=== PATIENT | male | born 1995 | race Caucasian/White ===

== ENCOUNTER 2025-01-07 07:59 | Emergency (ER) | payer OTHER ==
[~2025-01-07] VITALS: Ht 185.4 cm; Wt 99.5 kg
[2025-01-07 08:01] VITALS: BP 134/66; TEMP 99.4; O2SAT 97
[2025-01-07] MEDS ORDERED: AMOX500C PO (09:20)
== END 2025-01-07 09:37 | disposition home or self-care (01) ==
LOC: M ED 07:59
DX: J02.0 Streptococcal pharyngitis (principal); Z79.2 Long term (current) use of antibiotics

== ENCOUNTER 2025-02-04 10:32 | Emergency (ER) | payer OTHER ==
[~2025-02-04] VITALS: Ht 185.4 cm; Wt 107.8 kg
[~2025-02-04 10:32] MED LIST: AMOX500C PO
[2025-02-04] MEDS: ACETAMINOPHEN *IV* 1,000 MG in IV 1 EA IV ONE (14:27)
[2025-02-04 14:33] VITALS: BP 130/70; TEMP 97.8; O2SAT 99
[2025-02-04] MEDS ORDERED: LIDO1ADH93 TOP (18:31)
[2025-02-04] MEDS ORDERED: SFHIBU600 PO (18:31)
== END 2025-02-04 18:35 | disposition home or self-care (01) ==
LOC: M ED 10:32
DX: M54.16 Radiculopathy, lumbar region (principal); M51.362 Other intervertebral disc degeneration, lumbar region with discogenic back pain and lower extremity pain; Z79.1 Long term (current) use of non-steroidal anti-inflammatories (NSAID); Z79.899 Other long term (current) drug therapy
CPT/HCPCS: 72131; 72148; 96365; 96366; 96375; 99284; J0134; J1100